=== PATIENT | female | born 1990 | race Caucasian/White ===

== ENCOUNTER 2018-11-17 11:04 | Day surgery (SDC) | payer OTHER ==
[2018-11-17 12:15] VITALS: BP 106/58; TEMP 98.7; BMI 28.1
[2018-11-17] MEDS ORDERED: Acetaminophen 500 MG TAB PO SCH (12:30)
[2018-11-17] MEDS ORDERED: Iron Sucrose Complex 500 MG in Sodium Chloride 0.9% 250 ML 250 ML IVPB SCH (12:30)
--- NOTE | 2018-11-17 16:03 | PDOC.EVN ---
Event Note - Event Note Event Note: Patient of Dr Chew Location: L&D Here for Iron infusion No complications noted. Patient seen at bedside.
[2018-11-17] MEDS ORDERED: diphenhydrAMINE 25 MG CAP PO PRN (17:29)
--- NOTE | 2018-11-17 17:31 | PDOC.EVN ---
Event Note - Event Note Event Note: L&D Time: 1730 Patient noted to have mild rash on legs. I have ordered benadryl po for now. I will OBS here ion L&D until 1900 to make sure nothing is progressive. No SOB, no fever, no evidence PTL Vitals reviewed with luis, the patient's nurse
--- NOTE | 2018-11-17 19:07 | PDOC.EVN ---
Event Note - Event Note Event Note: Time: 1904 Patient now ready for DC to home I assessed her again at bedside "Rash" on legs has resolved with low dose oral beandyl. Next appointment is in one week
== END 2018-11-17 19:10 | disposition home or self-care (01) ==
LOC: L&D/OP 11:04
PROVIDERS: ATTEND Student in an Organized Health Care Education/Training Program
DX: O99.019 Anemia complicating pregnancy, unspecified trimester (principal); D64.9 Anemia, unspecified; O99.89 Other specified diseases and conditions complicating pregnancy, childbirth and the puerperium; R21 Rash and other nonspecific skin eruption; Z79.899 Other long term (current) drug therapy
CPT/HCPCS: 96361; 96365; 96366; 99283; J1756; J7050

== ENCOUNTER 2019-01-17 05:30 | Inpatient (IN) | payer OTHER ==
[2019-01-17] MEDS ORDERED: Butorphanol Tartrate 1 MG/ML VIAL SLOW IVP PRN (07:04)
[2019-01-17] MEDS ORDERED: Carboprost 250 MCG/ML AMP IM PRN (07:04)
[2019-01-17] MEDS ORDERED: Promethazine HCl 25 MG/ML VIAL IM PRN ×2 (07:04→10:19)
[2019-01-17] MEDS ORDERED: Misoprostol 200 MCG TAB PR PRN (07:04)
[2019-01-17] MEDS ORDERED: NS w/ Oxytocin 10 units 500 ML IV SCH (07:04)
[2019-01-17] MEDS ORDERED: Penicillin G Potassium 5 MILL.UNITS in Sodium Chloride 0.9% 100 ML IVPB SCH (07:04)
[2019-01-17] MEDS ORDERED: Acetaminophen 500 MG TAB PO PRN (07:04)
[2019-01-17] MEDS ORDERED: NS / Oxytocin 40 units/1000ml 1,000 ML IV PRN (07:04)
[2019-01-17] MEDS ORDERED: Ibuprofen 800 MG TAB PO PRN (07:04)
[2019-01-17] MEDS ORDERED: Lidocaine 1% (PF) 30 ML VIAL SC PRN (07:04)
[2019-01-17] MEDS ORDERED: Diphenoxylate HCl/Atropine Tablet PO PRN (07:04)
[2019-01-17] MEDS ORDERED: Ondansetron PF 4 MG/2 ML Vial IVP PRN ×3 (07:04→17:28)
[2019-01-17] MEDS ORDERED: Methylergonovine 0.2 MG/ML VIAL IM PRN (07:04)
[2019-01-17] MEDS ORDERED: HYDROcodone/Acetaminophen 5/325 mg Tablet PO PRN ×3 (07:04→17:28)
[2019-01-17 07:12] VITALS: BMI 28.7
[2019-01-17] MEDS: Lactated Ringer's 1,000 ML IV SCH ×2 (07:26→10:41)
--- NOTE | 2019-01-17 07:34 | PDOC.LDHP ---
Labor and Delivery H&P Chief complaint: scheduled induction HPI: 28yo at 39w4d by LMP here for elective IOL. No complaints. Current gestational age (weeks): 39 Due date: 01/20/19 Dating criteria: last menstrual period Grav: 1 Para: 0 OB History Details: anemia of , s/p IV iron Current complications: none Abnormal US findings: No Past Medical History: anemia Current medications: pre- vitamins, iron Previous surgical history: none Allergies/Adverse Reactions: Allergies Allergy/AdvReac Type Severity Reaction Status Date / Time No Known Allergies Allergy Verified 01/17/19 07:06 Social history: none - Physical Exam Vital signs reviewed and normal: yes General: NAD Heart: RRR Lungs: CTAB Abdomen: gravid Extremeties: no edema FHT: category 1 [place] contractions every: 3min - Vaginal Exam cm dilated: 4 Effacement: 50% Station: -2 (arom clear) - OB Labs Blood type: B RH: positive Antibody Screen: negative HIV: negative RPR: negative HEPSAg: negative 1 hour GCT: negative GBS: positive Urine drug screen: negative Rubella: immune - Assessment L&D Assessment: elective induction at term - Plan Plan: admit to L&D, labor augmentation if indicated, GBS antibiotic prophylaxis , informed consent obtained, anesthesia consult for pain management
[2019-01-17 07:45] LABS: Hemoglobin 11.9 g/dL (12.0-16.0); Mean Corpuscular HGB CONC 32.6 g/dL (32.0-36.0); Mean Corpuscular Hemoglobin 26.7 pg (27.0-31.0); Mean Corpuscular Volume 81.9 fL (78.0-98.0); Mean Platelet Volume 10.7 fL (7.4-10.4); Platelet Count 215 thou/uL (130-400); RBC Distribution Width 23.7 % (11.5-14.5); Red Blood Cell (RBC) Count 4.45 mill/uL (4.20-5.40); White Blood Cell (WBC) Count 9.5 thou/uL (4.8-10.8)
[2019-01-17 08:14] LABS: HBSAg Index 0.26 S/CO (0-0.99); Hep B Surf Ag Non-Reactive S/CO (NonReactive); Syphilis Antibody Nonreactive (Nonreactive); Syphilis Antibody Index 0.04 S/CO (<1.00 Non-Reactive)
[2019-01-17] MEDS ORDERED: Fentanyl 4 mcg/Bup 0.1% Cadd 100 ML ONE (09:29)
[2019-01-17] MEDS ORDERED: Lidocaine 1.5%/Epinephrine 1:200,000 5 ML AMPUL IJ ONE (09:59)
[2019-01-17] MEDS ORDERED: ePHEDrine/0.9% NaCl/PF SYRINGE 50 mg/10 ml SLOW IVP SCH (10:19)
[2019-01-17] MEDS ORDERED: Eucerin (Mineral Oil/Petrolatum,White) 30 gm Jar TOP PRN (10:19)
[2019-01-17] MEDS ORDERED: diphenhydrAMINE 50 MG/ML VIAL IVP PRN (10:19)
[2019-01-17] MEDS ORDERED: Naloxone HCl 0.4 mg/ml Vial IVP PRN (10:19)
[2019-01-17] MEDS ORDERED: Acetaminophen 325 MG TAB PO PRN (10:19)
[2019-01-17] MEDS ORDERED: Naloxone HCl 0.4 mg/ml Vial IVP SCH (10:19)
[2019-01-17] MEDS ORDERED: Lactated Ringer's 500 ML IV PRN (10:19)
[2019-01-17] MEDS ORDERED: Communication Order-Pharmacy FS SCH (10:30)
[2019-01-17] MEDS ORDERED: Fentanyl 4 mcg/Bupivacaine 0.1% Cassette 100 ML EPIDURAL SCH (10:30)
[2019-01-17] MEDS ORDERED: Lidocaine 2% MPF 10 ML AMP (For Epidural Use) ONE (11:11)
[2019-01-17] MEDS: Penicillin G 2.5 MILL.units 2.5 MILL.UNITS in Premix Bag 1 BAG IVPB SCH ×2 (11:15→15:16)
--- NOTE | 2019-01-17 13:06 | PDOC.LDPN ---
Labor & Delivery Progress Note - Subjective Subjective: comfortable - Objective Vital signs reviewed and normal: yes General: NAD Uterine fundus: non tender Dilation: 6 Effacement: 75% Station: -1 FHT: category 1 [place] contractions every: 2-5min IUPC placed: yes Plan: pitocin for augmentation (titrate to MVU, max pit of 30units)
[2019-01-17] MEDS ORDERED: NS / Oxytocin 40 units/1000ml 1,000 ML ONE (15:24)
[2019-01-17] MEDS ORDERED: Methylergonovine 0.2 MG/ML VIAL ONE (16:55)
[2019-01-17] MEDS ORDERED: Misoprostol 200 MCG TAB ONE ×4 (16:55→17:33)
--- NOTE | 2019-01-17 17:05 | PDOC.OPDEL ---
OB Operative/Delivery Note Delivery Dr/Surgeon: Jeevan Assist: n/a Pre-Delivery Diagnosis: elective induction Procedure/Post Delivery Dx: spontaneous vaginal delivery Weeks gestation: 39 Anesthesia: epidural - Findings A Sex: male - 1 min: 9 - 5 min: 9 - Additional Findings/Plan Placenta delivered: spontaneous Repaired Obstetrical Laceration: none Estimated blood loss: 400 Post delivery plan: routine recovery
[2019-01-17] MEDS ORDERED: Lanolin Ointment 7 GM TUBE TOP PRN (17:28)
[2019-01-17] MEDS ORDERED: Bisacodyl 10 MG SUPP PR PRN (17:28)
[2019-01-17] MEDS ORDERED: Preparation H Ointment 28 GM TUBE PR PRN (17:28)
[2019-01-17] MEDS ORDERED: Benzocaine/Menthol 20-0.5% 60 ML CAN TOP PRN (17:28)
[2019-01-17] MEDS ORDERED: Adacel (T-DAP) 0.5 ML SYRINGE IM ONE (17:28)
[2019-01-17] MEDS ORDERED: NS / Oxytocin 40 units/1000ml 1,000 ML IV SCH (17:28)
[2019-01-17] MEDS ORDERED: Milk Of Magnesia 30 ML UDCUP PO PRN (17:28)
[2019-01-17] MEDS ORDERED: diphenhydrAMINE 25 MG CAP PO PRN (17:28)
[2019-01-17] MEDS: Ibuprofen 800 MG TAB PO SCH (20:57)
[2019-01-17] MEDS: Docusate Calcium (SURFAK) 240 MG CAP PO SCH (20:57)
[2019-01-18] MEDS: Ibuprofen 800 MG TAB PO SCH ×3 (06:38→21:40)
--- NOTE | 2019-01-18 07:23 | PDOC.PP ---
Post Progress Note Post Day #: 1 PO intake tolerated: yes Flatus: yes Ambulation: yes Vital Signs (12 hours) Temp Pulse Resp BP Pulse Ox 01/18/19 04:00 98.3 F 78 17 103/65 01/17/19 23:00 98.1 F 87 17 100/51 L 01/17/19 20:00 99.6 F 79 17 103/56 L 99 Weight Weight 157 lb - Physical Examination General: NAD Cardiovascular: RRR Respiratory: non-labored breathing Abdominal: no distention, appropriately TTP Fundus firm & at: umb-2 Extremities: negative homans (B) Skin: no rash Neurological: no gross focal deficits Psychiatric: normal affect Result Diagrams: 01/17/19 07:11 Additional Labs: Post Labs Blood Type O POSITIVE 01/17/19 08:18 Hep Bs Antigen Non-Reactive S/CO (NonReactive) 01/17/19 07:11 - Assessment/Plan PPD1 s/p TSVD VSSAF Doing well, lochia < menses Rh pos RImm Cont PP care, home tomorrow
[2019-01-18] MEDS: Ferrous Sulfate 325 MG TAB PO SCH ×2 (07:38→15:30)
[2019-01-18] MEDS: Docusate Calcium (SURFAK) 240 MG CAP PO SCH ×2 (09:11→21:40)
[2019-01-18] MEDS: Prenatal Vitamin 1 TAB PO SCH (09:11)
[2019-01-18 17:23] VITALS: TEMP 98
--- NOTE | 2019-01-19 08:28 | PDOC.PP ---
Post Progress Note Post Day #: 2 Subjective: No concerns. Minimal bleeding and pain. Breast feeding. PO intake tolerated: yes Flatus: yes Ambulation: yes Vital Signs (12 hours) Temp Pulse Resp BP Pulse Ox 01/19/19 08:07 98.0 F 72 20 84/51 L 99 01/18/19 20:32 98.0 F 84 18 104/57 L 98 Weight Weight 157 lb - Physical Examination General: NAD Cardiovascular: RRR Respiratory: non-labored breathing Abdominal: no distention, appropriately TTP Fundus firm & at: below umbilicus Extremities: negative homans (B) Neurological: no gross focal deficits Psychiatric: A&Ox3, normal affect Result Diagrams: 01/17/19 07:11 Additional Labs: Post Labs Blood Type O POSITIVE 01/17/19 08:18 Hep Bs Antigen Non-Reactive S/CO (NonReactive) 01/17/19 07:11 (1) Vaginal delivery Code(s): O80 - ENCOUNTER FOR FULL-TERM UNCOMPLICATED DELIVERY Status: Acute - Assessment/Plan PPD2 VSSAF Meeting requirements for d/c. D/c home today. F/U 6 weeks.
[2019-01-19] MEDS: Ferrous Sulfate 325 MG TAB PO SCH (09:18)
[2019-01-19] MEDS: Prenatal Vitamin 1 TAB PO SCH (09:18)
[2019-01-19] MEDS: Docusate Calcium (SURFAK) 240 MG CAP PO SCH (09:18)
[2019-01-19] MEDS: Ibuprofen 800 MG TAB PO SCH (09:22)
[2019-01-19 09:52] VITALS: BP 102/63
== END 2019-01-19 13:30 | disposition home or self-care (01) | DRG 807 ==
LOC: L&D 06:29 → 3SW 20:03
PROVIDERS: ADMIT Student in an Organized Health Care Education/Training Program; ATTEND Student in an Organized Health Care Education/Training Program
PROC: 10E0XZZ Delivery of Products of Conception, External Approach (ICD-10-PCS; principal; 2019-01-17)
DX: O99.02 Anemia complicating childbirth (principal); Z37.0 Single live birth; Z3A.39 39 weeks gestation of pregnancy; D64.9 Anemia, unspecified
CPT/HCPCS: 36415; 51702; 85027; 86780; 86850; 86900; 86901; 87340; 90715; J2001; J2210; J2405; J2540; J3490; J7050